=== PATIENT | male | born 1945 | race Caucasian/White ===

== ENCOUNTER 2016-11-16 12:07 | Emergency (ER) | payer OTHER ==
[~2016-11-16] VITALS: Ht 167.6 cm; Wt 72.0 kg
[~2016-11-16 12:07] MED LIST: BACTRIM,SEPT1 TABLET PO; CLINDAMYCIN HC300 MG PO; PERCOCET 5/31 TABLET PO
[2016-11-16 13:29] LABS: HEMATOCRIT 42.2 % (38.0-50.0); MCH 30.7 PG (29.0-34.0); MCHC 34.4 G/DL (30.0-36.0); MCV 89.4 FL (86-99); MEAN PLAT.VOLUME 9.3 uM^3 (9.0-12.4); PLATELET COUNT 232 K/uL (156-360); RBC DIS.WIDTH-CV 12.1 % (11.8-14.6); RBC DIS.WIDTH-SD 39.8 % (39-53); RED BLOOD COUNT 4.72 M/uL (4.00-5.50); WHITE BLOOD COUNT 12.2 K/uL (4.1-10.2)
[2016-11-16 13:35] LABS: CHLORIDE 107 mEq/L (99-109); POTASSIUM 4.3 mEq/L (3.7-5.4); SODIUM 140 mEq/L (136-147)
[2016-11-16 13:37] LABS: GLUCOSE 87 mg/dL (70-99)
[2016-11-16 13:38] LABS: ANION GAP 9 MEQ/L (2-14)
[2016-11-16 13:40] LABS: GFR ESTIMATE (CALCULATED) > 59 mL/min/
[2016-11-16 13:41] LABS: UREA NITROGEN (BUN) 22 mg/dL (9-23)
[2016-11-16] MEDS ORDERED: BACTRIM,SEPT1 TABLET PO (14:55)
[2016-11-16 15:19] VITALS: BP 141/72
[2016-11-17] MEDS ORDERED: CO Q-10200 MG PO (13:07)
[2016-11-17] MEDS ORDERED: VITAMIN D-3 401 EACH PO (13:07)
[2016-11-17] MEDS ORDERED: MAGNESIUM400 M1 PO (13:07)
== END 2016-11-16 15:19 | disposition home or self-care (01) ==
LOC: EME 12:07
PROVIDERS: Physician Assistant
DX: L03.012 Cellulitis of left finger (principal); S60.461A Insect bite (nonvenomous) of left index finger, initial encounter; W57.XXXA Bitten or stung by nonvenomous insect and other nonvenomous arthropods, initial encounter
CPT/HCPCS: 73140; 80048; 85027; J0696; J7050